=== PATIENT | female | born 1980 | race Caucasian/White ===

== ENCOUNTER 2019-04-07 17:31 | Emergency (ER) | payer OTHER, MEDICAID, SELFPAY ==
[2019-04-07 17:44] VITALS: BP 136/76; PULSE 89; RESP 22; TEMP 36.8; O2SAT 100; BMI 39.6
[2019-04-07 18:29] LABS: Add Manual Diff / Slide Review NO; Basophils Absolute Auto 100 /uL (0-100); Basophils Percent Auto 0.9 % (0-2); Eosinophils Absolute Auto 200 /uL (0-450); Eosinophils Percent Auto 2.7 % (2-4); Hematocrit 39.4 % (36-46); Hemoglobin 13.4 g/dL (12.0-16.0); Lymphocytes Absolute Auto 2300 /uL (1100-4500); Lymphocytes Percent Auto 37.8 % (25-40); Mean Corpuscular Hemoglobin 29.6 PG (26-34); Mean Corpuscular Volume 87.2 fL (80-100); Monocytes Absolute Auto 500 /uL (0-900); Monocytes Percent Auto 8.8 % (3-14); Neutrophils Absolute Auto 3100 /uL (1500-7000); Neutrophils Percent Auto 49.8 % (50-75); Platelet Count 348 X10^3/uL (150-400); Red Blood Cell Count 4.52 X10^6/uL (4.0-5.2); Red Cell Distribution Width 13.4 % (11.6-14.8); White Blood Cell Count 6.2 X10^3/uL (4.5-11.0)
[2019-04-07 18:40] LABS: Blood Urea Nitrogen 15 mg/dL (7-17); Calcium 9.1 mg/dL (8.4-10.2); Carbon Dioxide 27 mmol/L (22-32); Chloride 100 mmol/L (98-107); Estimated Glomerular Filt Rate > 60.0 mL/min (>60); Glucose 140 mg/dL (70-100); HEMOLYSIS < 15 (0-50); Potassium 3.8 mmol/L (3.4-5.1); Sodium 137 mmol/L (137-145)
[2019-04-07] MEDS: SODIUM CHLORIDE 0.9% 1,000 ML 1000 ML IV (18:47)
[2019-04-07] MEDS: diphenhydrAMINE 50 MG/ML VIAL IV (18:47)
[2019-04-07] MEDS: METOCLOPRAMIDE 10 MG/2 ML INJ IV (18:47)
[2019-04-07] MEDS: DEXAMETHASONE 10 MG/ML VIAL IV (18:47)
[2019-04-07 20:52] LABS: RBC Urine 1-5/HPF (0-5/HPF); WBC Urine 1-5/HPF (0-5/HPF)
[2019-04-07 20:53] LABS: Bacteria Urine Few (2-10); Culture Indicated Urine Cult Not Indicated; Squamous Epithelial Cell Urine 5-10 /HPF (0-5/HPF)
--- NOTE | 2019-04-07 21:05 | ED.HA ---
HPI - Headache <GUILLERMINA Hammonds - Last Filed: 04/07/19 21:16> General Chief Complaint: Headache Stated Complaint: HEADACHE, DIZZY, NAUSEA Time Seen by Provider: 04/07/19 17:39 Source: patient Mode of arrival: Ambulatory Limitations: no limitations History of Present Illness HPI Narrative: The patient is a 38-year-old female nonsmoker with a history of UTI who presents with a chief complaint of a headache nausea, photophobia phonophobia and feeling ?foggy over the past 5 days. She is concerned about anemia. She denies any fevers. She denies any chest pain shortness of breath vomiting or diarrhea. She states that she has a family history of migraines and is concerned about that. She has tried ibuprofen, which helped a little bit but not completely. She denies any thunderclap sensation. Related Data Previous Rx's Medication Instructions Recorded ketorolac 10 mg PO TID PRN #14 tab 04/07/19 Allergies Allergy/AdvReac Type Severity Reaction Status Date / Time bee venom protein (honey bee) Allergy Anaphylaxis Verified 04/07/19 17:47 Review of Systems <NEMESIO Hammonds - Last Filed: 04/07/19 21:16> Review of Systems Narrative: GENERAL: Denies chills, fatigue, malaise, fever, sweats. HEENT: Denies sinus pain, ear pain, sore throat, difficulty swallowing, dizziness. RESPIRATORY: Denies dyspnea, cough, wheezing, hemoptysis, sputum. CARDIOVASCULAR: Denies chest pain, palpitations, orthopnea, edema, GASTROINTESTINAL: Denies nausea, vomiting, abdominal pain, diarrhea, constipation, melena. : Denies dysuria, frequency, incontinence, hematuria, urinary retention. MUSCULOSKELETAL: denies weakness, joint pain, or bony pain SKIN: Denies rash, skin lesions, or other NEUROLOGIC: See HPI PSYCHIATRIC: No concerning psychosocial issues. 12 point review of systems is negative except for those stated above Patient History <GUILLERMINA Hammonds - Last Filed: 04/07/19 21:16> Social History Smoking Status: Current some day smoker Social History Smoking Status: Current some day smoker tobacco type: cigarettes alcohol intake frequency: a few times a week Substance Use Type: does not use Exam <GUILLERMINA Hammonds - Last Filed: 04/07/19 21:16> Narrative Exam Narrative: GENERAL: This is a well-nourished, well-developed patient, no acute distress HEAD: Atraumatic. Normocephalic. No temporal or scalp tenderness. EYES: Pupils equal round and reactive. Extraocular motions intact. No scleral icterus. No injection or drainage. ENT: Nose without bleeding, purulent drainage or septal hematoma. Throat without erythema, tonsillar hypertrophy or exudate. Uvula midline. Airway patent. NECK: Trachea midline. No JVD or lymphadenopathy. Supple, nontender, no meningeal signs. CARDIOVASCULAR: Regular rate and rhythm without murmurs, gallops, or rubs. RESPIRATORY: Clear to auscultation. Breath sounds equal bilaterally. No wheezes, rales, or rhonchi. GASTROINTESTINAL: Abdomen soft, non-tender, nondistended. No hepato-splenomegaly, or palpable masses. No guarding. EXTREMITIES: No clubbing, cyanosis, or edema. No joint tenderness, effusion, or edema noted. BACK: Nontender without deformity or crepitance. No flank tenderness. NEURO: AOx3. No gross cranial nerve deficit. Strength is equal upper and lower extremities bilaterally. Stable gait. SKIN: No rash or erythema on visible skin Initial Vital Signs Initial Vital Signs: Vital Signs Temperature 98.3 F 04/07/19 17:44 Pulse Rate 89 04/07/19 17:44 Respiratory Rate 22 04/07/19 17:44 Blood Pressure 136/76 04/07/19 17:44 Pulse Oximetry 100 04/07/19 17:44 <Sophie Smith DO - Last Filed: 04/08/19 02:42> Initial Vital Signs Initial Vital Signs: Vital Signs Temperature 98.3 F 04/07/19 17:44 Pulse Rate 89 04/07/19 17:44 Respiratory Rate 22 04/07/19 17:44 Blood Pressure 136/76 04/07/19 17:44 Pulse Oximetry 100 04/07/19 17:44 Course <MELE Hammonds-JULIENNE - Last Filed: 04/07/19 21:16> Orders Ordered: ED Orders 04/07/19 18:20 Basic Metabolic Panel Stat Complete Blood Count AUTO DIFF Stat 04/07/19 20:10 Urine Microscopic Stat Discontinued Medications Dexamethasone (Decadron) 10 mg IV NOW ONE Stop: 04/07/19 18:08 Last Admin: 04/07/19 18:47 Dose: 10 mg Documented by: ANI Diphenhydramine HCl (Benadryl) 50 mg IV NOW ONE Stop: 04/07/19 18:08 Last Admin: 04/07/19 18:47 Dose: 50 mg Documented by: ANI Sodium Chloride (Normal Saline 0.9%) 1,000 mls @ 1,000 mls/hr IV BOLUS ONE Stop: 04/07/19 18:38 Last Infusion: 04/07/19 20:18 Dose: 0 mls/hr Documented by: Admin: 04/07/19 18:47 Dose: 1,000 mls/hr Documented by: ANI Metoclopramide HCl (Reglan) 10 mg IV NOW ONE Stop: 04/07/19 18:08 Last Admin: 04/07/19 18:47 Dose: 10 mg Documented by: ANI Ondansetron HCl (Zofran) 4 mg IV NOW ONE Stop: 04/07/19 17:40 Last Admin: 04/07/19 18:46 Dose: Not Given Documented by: ANI Vital Signs Vital signs: Vital Signs - 8 hr 04/07/19 21:19 Pulse Rate 91 H Blood Pressure [Left Arm] 129/76 Pulse Oximetry 100 <Sophie Smith DO - Last Filed: 04/08/19 02:42> Orders Ordered: ED Orders 04/07/19 18:20 Basic Metabolic Panel Stat Complete Blood Count AUTO DIFF Stat 04/07/19 20:10 Urine Microscopic Stat Discontinued Medications Dexamethasone (Decadron) 10 mg IV NOW ONE Stop: 04/07/19 18:08 Last Admin: 04/07/19 18:47 Dose: 10 mg Documented by: ANI Diphenhydramine HCl (Benadryl) 50 mg IV NOW ONE Stop: 04/07/19 18:08 Last Admin: 04/07/19 18:47 Dose: 50 mg Documented by: ANI Sodium Chloride (Normal Saline 0.9%) 1,000 mls @ 1,000 mls/hr IV BOLUS ONE Stop: 04/07/19 18:38 Last Infusion: 04/07/19 20:18 Dose: 0 mls/hr Documented by: Admin: 04/07/19 18:47 Dose: 1,000 mls/hr Documented by: ANI Metoclopramide HCl (Reglan) 10 mg IV NOW ONE Stop: 04/07/19 18:08 Last Admin: 04/07/19 18:47 Dose: 10 mg Documented by: ANI Ondansetron HCl (Zofran) 4 mg IV NOW ONE Stop: 04/07/19 17:40 Last Admin: 04/07/19 18:46 Dose: Not Given Documented by: ANI Vital Signs Vital signs: Vital Signs - 8 hr 04/07/19 21:19 Pulse Rate 91 H Blood Pressure [Left Arm] 129/76 Pulse Oximetry 100 MDM - Headache <GUILLERMINA Hammonds - Last Filed: 04/07/19 21:16> Lab Data Result diagrams: 04/07/19 18:20 04/07/19 18:20 Labs: Lab Results 04/07/19 04/07/19 04/07/19 Range/Units 18:20 18:20 20:10 WBC 6.2 (4.5-11.0) X10^3/uL RBC 4.52 (4.0-5.2) X10^6/uL Hgb 13.4 (12.0-16.0) g/dL Hct 39.4 (36-46) % MCV 87.2 (80-100) fL MCH 29.6 (26-34) PG MCHC 34.0 (30-36) % RDW 13.4 (11.6-14.8) % Plt Count 348 (150-400) X10^3/uL Neut % (Auto) 49.8 L (50-75) % Lymph % (Auto) 37.8 (25-40) % [place] % (Auto) 8.8 (3-14) % Eos % (Auto) 2.7 (2-4) % Baso % (Auto) 0.9 (0-2) % Neut # (Auto) 3100 (9506-1955) /uL Lymph # (Auto) 2300 (4071-6968) /uL [place] # (Auto) 500 (0-900) /uL Eos # (Auto) 200 (0-450) /uL Baso # (Auto) 100 (0-100) /uL Sodium 137 (137-145) mmol/L Potassium 3.8 (3.4-5.1) mmol/L Chloride 100 (98-107) mmol/L Carbon Dioxide 27 (22-32) mmol/L BUN 15 (7-17) mg/dL Creatinine 0.60 (0.52-1.04) mg/dL Estimated GFR > 60.0 (>60) mL/min BUN/Creatinine Ratio 25.0 H (6-22) Glucose 140 H (70-100) mg/dL Calcium 9.1 (8.4-10.2) mg/dL Urine RBC 1-5/hpf (0-5/HPF) Urine WBC 1-5/hpf (0-5/HPF) Ur Squamous Epith Cells 5-10 /hpf H (0-5/HPF) Urine Bacteria Few (2-10) H (None) Ur Culture Indicated? Cult not indicated Point of Care Testing Test Results Negative Urine Dip Bedside Urine Glucose Negative Bedside Urine Bilirubin + 1 Bedside Urine Ketone +/- 5 Urine Specific [place] 1.030 Bedside Urine Occult Blood +/- Bedside Urine pH 6.0 Bedside Urine Protein +/- 15 Bedside Urine Urobilinogen +/- 1mg Bedside Urine Nitrite - Negative Bedside Urine Leukocytes +/- 15 Esterase MDM Narrative Medical decision making narrative: The patient is a 38-year-old female who presents with a chief complaint of headache x5 days. She has no thunderclap sensation, is neurologically intact on exam. She is afebrile, her CBC and CMP are without deficit. She was treated for migraine in the emergency department with dexamethasone, Reglan and Benadryl and felt complete resolution of her symptoms. I did not obtain imaging at this point given her full resolution of her headache symptoms. I discussed at length the importance of follow-up with primary care provider, suggested headache journal, and give her prescription for Toradol. Discussed not taking Toradol with Aleve ibuprofen or any other NSAIDs. Patient has no questions or concerns upon discharge is states understanding of follow-up care as well as return precautions of confusion, any acute concerns. <Sophie Smith, - Last Filed: 04/08/19 02:42> Lab Data Labs: Lab Results 04/07/19 04/07/19 04/07/19 Range/Units 18:20 18:20 20:10 WBC 6.2 (4.5-11.0) X10^3/uL RBC 4.52 (4.0-5.2) X10^6/uL Hgb 13.4 (12.0-16.0) g/dL Hct 39.4 (36-46) % MCV 87.2 (80-100) fL MCH 29.6 (26-34) PG MCHC 34.0 (30-36) % RDW 13.4 (11.6-14.8) % Plt Count 348 (150-400) X10^3/uL Neut % (Auto) 49.8 L (50-75) % Lymph % (Auto) 37.8 (25-40) % [place] % (Auto) 8.8 (3-14) % Eos % (Auto) 2.7 (2-4) % Baso % (Auto) 0.9 (0-2) % Neut # (Auto) 3100 (3890-8967) /uL Lymph # (Auto) 2300 (1815-2629) /uL [place] # (Auto) 500 (0-900) /uL Eos # (Auto) 200 (0-450) /uL Baso # (Auto) 100 (0-100) /uL Sodium 137 (137-145) mmol/L Potassium 3.8 (3.4-5.1) mmol/L Chloride 100 (98-107) mmol/L Carbon Dioxide 27 (22-32) mmol/L BUN 15 (7-17) mg/dL Creatinine 0.60 (0.52-1.04) mg/dL Estimated GFR > 60.0 (>60) mL/min BUN/Creatinine Ratio 25.0 H (6-22) Glucose 140 H (70-100) mg/dL Calcium 9.1 (8.4-10.2) mg/dL Urine RBC 1-5/hpf (0-5/HPF) Urine WBC 1-5/hpf (0-5/HPF) Ur Squamous Epith Cells 5-10 /hpf H (0-5/HPF) Urine Bacteria Few (2-10) H (None) Ur Culture Indicated? Cult not indicated Point of Care Testing Test Results Negative Urine Dip Bedside Urine Glucose Negative Bedside Urine Bilirubin + 1 Bedside Urine Ketone +/- 5 Urine Specific [place] 1.030 Bedside Urine Occult Blood +/- Bedside Urine pH 6.0 Bedside Urine Protein +/- 15 Bedside Urine Urobilinogen +/- 1mg Bedside Urine Nitrite - Negative Bedside Urine Leukocytes +/- 15 Esterase Discharge Plan Departure Patient Disposition: Home Clinical Impression: Headache Qualifiers: Headache type: unspecified Headache chronicity pattern: unspecified pattern Intractability: not intractable Qualified Code(s): R51 - Headache Discharge Date/Time: 04/07/19 21:30 Instructions: DI for Headache Activity Restrictions/Additional Instructions: Please follow up with primary care provider. I have given you a prescription for ketorolac. Do not combine this with Aleve ibuprofen or any other NSAIDs. Please come back to the emergency department for any acute concerns such as concern of heart attack or stroke. Please go home and push fluids, and sleep. I have given you a work note for tomorrow in case you need it. Prescriptions: New ketorolac 10 mg tablet 10 mg PO TID PRN (Reason: pain) Qty: 14 RF: 0 Stand Alone Forms: Work Release Note
[2019-04-07 21:19] VITALS: BP 129/76; PULSE 91; O2SAT 100
== END 2019-04-07 21:30 | disposition home or self-care (01) ==
PROVIDERS: Emergency Medicine; Emergency Provider Nurse Practitioner Family
DX: R51 Headache (principal)
CPT/HCPCS: 36415; 80048; 81003; 81015; 81025; 85025; 96374; 96375; 99283; 99284; J1100; J1200; J2765